=== PATIENT | female | born 1960 | race Caucasian/White ===

== ENCOUNTER 2021-11-17 18:12 | Emergency (ER) | payer OTHER, BC ==
[2021-11-17] MEDS ORDERED: HYDROmorphone 1 MG/ML Syringe IVPUSH ONE ×2 (18:39→20:20)
[2021-11-17] MEDS ORDERED: Sodium Chloride 0.9% 1,000 ML IV ONE (19:27)
== END 2021-11-17 20:50 | disposition short-term general hospital (02) ==
LOC: VM.ED 18:12
DX: S72.091A Other fracture of head and neck of right femur, initial encounter for closed fracture (principal); I10 Essential (primary) hypertension; Z91.030 Bee allergy status; Z88.8 Allergy status to other drugs, medicaments and biological substances; W01.0XXA Fall on same level from slipping, tripping and stumbling without subsequent striking against object, initial encounter
CPT/HCPCS: 51702; 73552; 96374; 96376; 99284; J1170; J7030

== ENCOUNTER 2021-11-25 11:27 | Inpatient (IN) | payer OTHER, BC ==
[2021-11-25] MEDS: oxyCODONE 5 MG Tab PO PRN ×2 (16:10→20:12)
[2021-11-25] MEDS ORDERED: Zolpidem 5 MG Tab PO PRN (17:10)
[2021-11-25] MEDS ORDERED: ALPRAZolam 0.5 MG Tab PO PRN (17:10)
[2021-11-25] MEDS ORDERED: Ondansetron 4 MG Tab.DIS PO PRN (17:15)
[2021-11-25] MEDS: Calcium Citrate/Vitamin D3 315 MG-250 Unit Tab PO SCH (18:18)
[2021-11-25] MEDS: Acetaminophen 500 MG Tab PO SCH (21:54)
[2021-11-26] MEDS: oxyCODONE 5 MG Tab PO PRN ×6 (01:25→22:37)
[2021-11-26] MEDS: Levothyroxine 125 MCG Tab PO SCH (06:01)
[2021-11-26] MEDS: Pantoprazole 40 MG Tab.CR PO SCH (06:01)
[2021-11-26] MEDS: Polyethylene Glycol 3350 Powder 17 GM Packet PO SCH (08:53)
[2021-11-26] MEDS: Acetaminophen 500 MG Tab PO SCH ×3 (08:53→20:18)
[2021-11-26] MEDS: Calcium Citrate/Vitamin D3 315 MG-250 Unit Tab PO SCH ×2 (08:53→17:17)
[2021-11-26] MEDS: Cyanocobalamin (Vitamin B12) 250 MCG Tab PO SCH (08:53)
[2021-11-26] MEDS: Multivitamins with Iron/Calcium/Folic Acid/Minerals Tab PO SCH (08:53)
[2021-11-26] MEDS: Magnesium Oxide 400 MG Tab PO SCH ×2 (08:53→20:18)
[2021-11-26] MEDS: Clopidogrel 75 MG Tab PO SCH (08:54)
[2021-11-26] MEDS: atorvaSTATin 10 MG Tab PO SCH (08:54)
[2021-11-26] MEDS: Enoxaparin 40 MG/0.4 ML Syringe SUBCUT SCH (14:22)
[2021-11-27] MEDS: oxyCODONE 5 MG Tab PO PRN ×5 (02:37→20:47)
[2021-11-27] MEDS: Levothyroxine 125 MCG Tab PO SCH (06:40)
[2021-11-27] MEDS: Pantoprazole 40 MG Tab.CR PO SCH (06:40)
[2021-11-27] MEDS: Cyanocobalamin (Vitamin B12) 250 MCG Tab PO SCH (08:39)
[2021-11-27] MEDS: Magnesium Oxide 400 MG Tab PO SCH ×2 (08:39→20:47)
[2021-11-27] MEDS: Clopidogrel 75 MG Tab PO SCH (08:39)
[2021-11-27] MEDS: Calcium Citrate/Vitamin D3 315 MG-250 Unit Tab PO SCH ×3 (08:39→17:27)
[2021-11-27] MEDS: Multivitamins with Iron/Calcium/Folic Acid/Minerals Tab PO SCH (08:39)
[2021-11-27] MEDS: atorvaSTATin 10 MG Tab PO SCH (08:39)
[2021-11-27] MEDS: Acetaminophen 500 MG Tab PO SCH ×3 (08:39→20:46)
[2021-11-27] MEDS: Polyethylene Glycol 3350 Powder 17 GM Packet PO SCH (10:22)
[2021-11-27] MEDS: Enoxaparin 40 MG/0.4 ML Syringe SUBCUT SCH (15:38)
[2021-11-28] MEDS: oxyCODONE 5 MG Tab PO PRN ×5 (01:19→19:54)
[2021-11-28 06:47] LABS: ANION GAP 10.7 mmol/L (5-15)
[2021-11-28] MEDS: Levothyroxine 125 MCG Tab PO SCH (07:06)
[2021-11-28] MEDS: Pantoprazole 40 MG Tab.CR PO SCH (07:08)
[2021-11-28] MEDS: Acetaminophen 500 MG Tab PO SCH ×3 (09:14→19:59)
[2021-11-28] MEDS: Multivitamins with Iron/Calcium/Folic Acid/Minerals Tab PO SCH (09:14)
[2021-11-28] MEDS: atorvaSTATin 10 MG Tab PO SCH (09:14)
[2021-11-28] MEDS: Magnesium Oxide 400 MG Tab PO SCH ×2 (09:15→20:01)
[2021-11-28] MEDS: Cyanocobalamin (Vitamin B12) 250 MCG Tab PO SCH (09:15)
[2021-11-28] MEDS: Clopidogrel 75 MG Tab PO SCH (09:15)
[2021-11-28] MEDS: Calcium Citrate/Vitamin D3 315 MG-250 Unit Tab PO SCH ×2 (09:15→17:43)
[2021-11-28] MEDS: Polyethylene Glycol 3350 Powder 17 GM Packet PO SCH (09:16)
[2021-11-28] MEDS ORDERED: Polyethylene Glycol 3350 Powder 17 GM Packet PO PRN (13:00)
[2021-11-28] MEDS: Enoxaparin 40 MG/0.4 ML Syringe SUBCUT SCH (13:43)
[2021-11-29] MEDS: oxyCODONE 5 MG Tab PO PRN ×6 (00:34→23:13)
[2021-11-29] MEDS: Pantoprazole 40 MG Tab.CR PO SCH (06:19)
[2021-11-29] MEDS: Levothyroxine 125 MCG Tab PO SCH (06:20)
[2021-11-29] MEDS: Acetaminophen 500 MG Tab PO SCH ×3 (08:12→20:36)
[2021-11-29] MEDS: Calcium Citrate/Vitamin D3 315 MG-250 Unit Tab PO SCH ×2 (08:12→17:27)
[2021-11-29] MEDS: Multivitamins with Iron/Calcium/Folic Acid/Minerals Tab PO SCH (08:13)
[2021-11-29] MEDS: Cyanocobalamin (Vitamin B12) 250 MCG Tab PO SCH (08:13)
[2021-11-29] MEDS: Clopidogrel 75 MG Tab PO SCH (08:13)
[2021-11-29] MEDS: Magnesium Oxide 400 MG Tab PO SCH ×2 (08:13→20:36)
[2021-11-29] MEDS: atorvaSTATin 10 MG Tab PO SCH (08:13)
[2021-11-29] MEDS: Enoxaparin 40 MG/0.4 ML Syringe SUBCUT SCH (13:01)
[2021-11-30] MEDS: oxyCODONE 5 MG Tab PO PRN ×4 (06:07→19:43)
[2021-11-30] MEDS: Levothyroxine 125 MCG Tab PO SCH (06:09)
[2021-11-30] MEDS: Pantoprazole 40 MG Tab.CR PO SCH (06:09)
[2021-11-30] MEDS: Multivitamins with Iron/Calcium/Folic Acid/Minerals Tab PO SCH (08:10)
[2021-11-30] MEDS: Acetaminophen 500 MG Tab PO SCH ×3 (08:10→21:24)
[2021-11-30] MEDS: Calcium Citrate/Vitamin D3 315 MG-250 Unit Tab PO SCH ×2 (08:10→17:26)
[2021-11-30] MEDS: Cyanocobalamin (Vitamin B12) 250 MCG Tab PO SCH (08:11)
[2021-11-30] MEDS: atorvaSTATin 10 MG Tab PO SCH (08:11)
[2021-11-30] MEDS: Clopidogrel 75 MG Tab PO SCH (08:11)
[2021-11-30] MEDS: Magnesium Oxide 400 MG Tab PO SCH ×2 (08:11→21:24)
[2021-11-30] MEDS: Enoxaparin 40 MG/0.4 ML Syringe SUBCUT SCH (13:01)
[2021-12-01] MEDS: oxyCODONE 5 MG Tab PO PRN ×5 (02:25→20:17)
[2021-12-01] MEDS: Levothyroxine 125 MCG Tab PO SCH (06:23)
[2021-12-01] MEDS: Pantoprazole 40 MG Tab.CR PO SCH (06:23)
[2021-12-01] MEDS: Acetaminophen 500 MG Tab PO SCH ×2 (08:00→12:07)
[2021-12-01] MEDS: Magnesium Oxide 400 MG Tab PO SCH ×2 (08:01→20:15)
[2021-12-01] MEDS: atorvaSTATin 10 MG Tab PO SCH (08:01)
[2021-12-01] MEDS: Cyanocobalamin (Vitamin B12) 250 MCG Tab PO SCH (08:01)
[2021-12-01] MEDS: Clopidogrel 75 MG Tab PO SCH (08:01)
[2021-12-01] MEDS: Calcium Citrate/Vitamin D3 315 MG-250 Unit Tab PO SCH ×2 (08:01→18:04)
[2021-12-01] MEDS: Multivitamins with Iron/Calcium/Folic Acid/Minerals Tab PO SCH (08:01)
[2021-12-01] MEDS: Enoxaparin 40 MG/0.4 ML Syringe SUBCUT SCH (14:57)
[2021-12-02] MEDS: oxyCODONE 5 MG Tab PO PRN ×6 (00:48→23:58)
[2021-12-02] MEDS: Acetaminophen 500 MG Tab PO SCH ×4 (00:50→13:59)
[2021-12-02] MEDS: Pantoprazole 40 MG Tab.CR PO SCH (06:00)
[2021-12-02] MEDS: Levothyroxine 125 MCG Tab PO SCH (06:00)
[2021-12-02] MEDS: Magnesium Oxide 400 MG Tab PO SCH ×2 (08:58→21:32)
[2021-12-02] MEDS: Calcium Citrate/Vitamin D3 315 MG-250 Unit Tab PO SCH ×2 (08:58→17:52)
[2021-12-02] MEDS: atorvaSTATin 10 MG Tab PO SCH (08:59)
[2021-12-02] MEDS: Clopidogrel 75 MG Tab PO SCH (08:59)
[2021-12-02] MEDS: Multivitamins with Iron/Calcium/Folic Acid/Minerals Tab PO SCH (08:59)
[2021-12-02] MEDS: Cyanocobalamin (Vitamin B12) 250 MCG Tab PO SCH (08:59)
[2021-12-02] MEDS: Enoxaparin 40 MG/0.4 ML Syringe SUBCUT SCH (13:58)
[2021-12-03] MEDS: Pantoprazole 40 MG Tab.CR PO SCH (07:27)
[2021-12-03] MEDS: Levothyroxine 125 MCG Tab PO SCH (07:27)
[2021-12-03] MEDS: oxyCODONE 5 MG Tab PO PRN ×4 (08:33→22:40)
[2021-12-03] MEDS: Multivitamins with Iron/Calcium/Folic Acid/Minerals Tab PO SCH (08:33)
[2021-12-03] MEDS: Cyanocobalamin (Vitamin B12) 250 MCG Tab PO SCH (08:33)
[2021-12-03] MEDS: Magnesium Oxide 400 MG Tab PO SCH ×2 (08:33→20:43)
[2021-12-03] MEDS: atorvaSTATin 10 MG Tab PO SCH (08:33)
[2021-12-03] MEDS: Clopidogrel 75 MG Tab PO SCH (08:33)
[2021-12-03] MEDS: Calcium Citrate/Vitamin D3 315 MG-250 Unit Tab PO SCH ×2 (08:33→17:43)
[2021-12-03] MEDS: Acetaminophen 325 MG Tab PO PRN ×3 (11:27→20:43)
[2021-12-03] MEDS: Enoxaparin 40 MG/0.4 ML Syringe SUBCUT SCH (13:00)
[2021-12-04] MEDS: Acetaminophen 325 MG Tab PO PRN ×4 (01:05→22:47)
[2021-12-04] MEDS: oxyCODONE 5 MG Tab PO PRN ×5 (04:57→22:48)
[2021-12-04] MEDS: Levothyroxine 125 MCG Tab PO SCH (06:27)
[2021-12-04] MEDS: Pantoprazole 40 MG Tab.CR PO SCH (06:27)
[2021-12-04] MEDS: Calcium Citrate/Vitamin D3 315 MG-250 Unit Tab PO SCH ×2 (08:35→17:00)
[2021-12-04] MEDS: Cyanocobalamin (Vitamin B12) 250 MCG Tab PO SCH (08:35)
[2021-12-04] MEDS: Multivitamins with Iron/Calcium/Folic Acid/Minerals Tab PO SCH (08:35)
[2021-12-04] MEDS: atorvaSTATin 10 MG Tab PO SCH (08:35)
[2021-12-04] MEDS: Magnesium Oxide 400 MG Tab PO SCH ×2 (08:35→20:49)
[2021-12-04] MEDS: Clopidogrel 75 MG Tab PO SCH (08:35)
[2021-12-04] MEDS: Enoxaparin 40 MG/0.4 ML Syringe SUBCUT SCH (14:26)
[2021-12-05] MEDS: Acetaminophen 325 MG Tab PO PRN ×5 (03:07→21:25)
[2021-12-05] MEDS: oxyCODONE 5 MG Tab PO PRN ×5 (03:08→19:47)
[2021-12-05 07:05] LABS: ANION GAP 8.6 mmol/L (5-15)
[2021-12-05] MEDS: Levothyroxine 125 MCG Tab PO SCH (07:05)
[2021-12-05] MEDS: Pantoprazole 40 MG Tab.CR PO SCH (07:05)
[2021-12-05] MEDS: Magnesium Oxide 400 MG Tab PO SCH ×3 (08:36→20:11)
[2021-12-05] MEDS: Cyanocobalamin (Vitamin B12) 250 MCG Tab PO SCH (08:36)
[2021-12-05] MEDS: Multivitamins with Iron/Calcium/Folic Acid/Minerals Tab PO SCH (08:36)
[2021-12-05] MEDS: Clopidogrel 75 MG Tab PO SCH (08:36)
[2021-12-05] MEDS: atorvaSTATin 10 MG Tab PO SCH (08:36)
[2021-12-05] MEDS: Calcium Citrate/Vitamin D3 315 MG-250 Unit Tab PO SCH ×3 (08:37→18:18)
[2021-12-05] MEDS: Enoxaparin 40 MG/0.4 ML Syringe SUBCUT SCH (15:22)
[2021-12-06] MEDS: oxyCODONE 5 MG Tab PO PRN ×3 (00:16→10:35)
[2021-12-06] MEDS: Acetaminophen 325 MG Tab PO PRN ×2 (03:04→08:08)
[2021-12-06] MEDS: Levothyroxine 125 MCG Tab PO SCH (06:24)
[2021-12-06] MEDS: Pantoprazole 40 MG Tab.CR PO SCH (06:24)
[2021-12-06] MEDS: Magnesium Oxide 400 MG Tab PO SCH (08:09)
[2021-12-06] MEDS: atorvaSTATin 10 MG Tab PO SCH (08:10)
[2021-12-06] MEDS: Multivitamins with Iron/Calcium/Folic Acid/Minerals Tab PO SCH (08:10)
[2021-12-06] MEDS: Clopidogrel 75 MG Tab PO SCH (08:10)
[2021-12-06] MEDS: Calcium Citrate/Vitamin D3 315 MG-250 Unit Tab PO SCH (08:10)
[2021-12-06] MEDS: Cyanocobalamin (Vitamin B12) 250 MCG Tab PO SCH (08:14)
== END 2021-12-06 10:50 | disposition home or self-care (01) | DRG 560 ==
LOC: VM.MS 14:38
PROVIDERS: ADMIT Internal Medicine; ATTEND Family Medicine
DX: S72.141D Displaced intertrochanteric fracture of right femur, subsequent encounter for closed fracture with routine healing (principal); E87.1 Hypo-osmolality and hyponatremia; D62 Acute posthemorrhagic anemia; C34.91 Malignant neoplasm of unspecified part of right bronchus or lung; C34.92 Malignant neoplasm of unspecified part of left bronchus or lung; E03.9 Hypothyroidism, unspecified; R10.13 Epigastric pain; E78.5 Hyperlipidemia, unspecified; E53.8 Deficiency of other specified B group vitamins; Z88.8 Allergy status to other drugs, medicaments and biological substances; Z79.01 Long term (current) use of anticoagulants; Z79.899 Other long term (current) drug therapy; Z79.890 Hormone replacement therapy; Z86.16 Personal history of COVID-19; Z86.73 Personal history of transient ischemic attack (TIA), and cerebral infarction without residual deficits
CPT/HCPCS: 36415; 80048; 85025; 97110-GP; 97116-GP; 97161-GP; 97165-GO; 97535-GO; 97755-GO; A9270-GY; J1650

== ENCOUNTER 2023-01-17 16:41 | Emergency (ER) | payer BC, OTHER ==
[2023-01-17] MEDS ORDERED: Sodium Chloride 0.9% 10 ML Syringe FLUSH PRN (16:49)
[2023-01-17] MEDS ORDERED: Ondansetron 4 MG/2 ML SDV IVPUSH ONE (16:51)
[2023-01-17] MEDS ORDERED: Sodium Chloride 0.9% 1,000 ML IV SCH (17:00)
[2023-01-17 17:16] LABS: HEMATOCRIT 30.3 % (33.0-47.0); HEMOGLOBIN 10.5 g/dL (12.0-16.0); MEAN CORPUSCULAR HEMOGLOBIN 30.5 pg (26.0-32.0); MEAN CORPUSCULAR HGB CONC 34.7 g/dL (32.0-36.0); MEAN CORPUSCULAR VOLUME 88.1 fL (78.0-93.0); PLATELET COUNT,PLT 170 x10^3/uL (130-400); RED BLOOD CELL COUNT 3.44 x10^6/uL (4.00-5.50)
[2023-01-17] MEDS ORDERED: Piperacillin/Tazobactam 4.5 GM in Sodium Chloride 0.9% 100 ML IV ONE (17:19)
[2023-01-17] MEDS ORDERED: Azithromycin 500 MG in Sodium Chloride 0.9% 250 ML IV ONE (17:20)
[2023-01-17 17:25] LABS: WHITE BLOOD CELL COUNT,WBC 1.6 x10^3/uL (4.0-10.0)
[2023-01-17 17:32] LABS: PTT,PARTIAL THROMBOPLSTIN TIME 38.3 SEC (23.6-33.6)
[2023-01-17 17:37] LABS: EOSINOPHILS ABSOLUTE MAN 0.1 x10^3/uL (0.0-0.5); EOSINOPHILS PERCENT MAN 4 % (0-4); LYMPHOCYTES ABSOLUTE MAN 1.2 x10^3/uL (1.0-4.8); LYMPHOCYTES PERCENT MAN 78 % (25-50); MONOCYTES ABSOLUTE MAN 0.1 x10^3/uL (0.0-0.8); MONOCYTES PERCENT MAN 7 % (2-11); NEUTROPHILS ABSOLUTE MAN 0.2 x10^3/uL (1.8-7.7); PLATELET COUNT ESTIMATE ADEQUATE; SEG NEUTROPHILS PERCENT MAN 11 % (50-80)
[2023-01-17 17:46] LABS: INR 1.1 (2.0-3.5); PROTHROMBIN TIME 11.4 SEC (9.5-12.2)
[2023-01-17 18:03] LABS: A/G RATIO 0.68; ALANINE AMINOTRANSFERASE,ALT 10 U/L (14-59); ALBUMIN 2.7 g/dL (3.4-5.0); ALKALINE PHOSPHATASE 55 U/L (46-116); ANION GAP 11.9 mmol/L (5-15); ASPARTATE AMNIOTRANSFERASE,AST 21 U/L (15-37); BILIRUBIN TOTAL 0.7 mg/dL (0.2-1.0); BLOOD UREA NITROGEN,BUN 15 mg/dL (7-18); C-REACTIVE PROTEIN 14.63 mg/dL (<=0.30); CALCIUM 8.4 mg/dL (8.5-10.1); CARBON DIOXIDE,CO2 27 mmol/L (21-32); CHLORIDE,CL 96 mmol/L (98-107); CREATININE 0.9 mg/dL (0.55-1.02); GLUCOSE RANDOM 104 mg/dL (70-99); MAGNESIUM 1.6 mg/dL (1.8-2.4); PHOSPHORUS 3.6 mg/dL (2.6-4.7); POTASSIUM,K 3.9 mmol/L (3.5-5.1); PROTEIN TOTAL,TP 6.7 g/dL (6.4-8.2); SODIUM,NA 131 mmol/L (136-145)
[2023-01-17 18:04] LABS: ESTIMATED GFR 73 mL/min (>=60)
[2023-01-17 18:10] LABS: CORONAVIRUS COVID-19 NAA NEGATIVE (NEGATIVE); INFLUENZA A NAA NEGATIVE (NEGATIVE); INFLUENZA B NAA NEGATIVE (NEGATIVE)
[2023-01-17 18:11] LABS: RESPIRATORY SYNCYTIAL VIR NAA NEGATIVE (NEGATIVE)
[2023-01-17] MEDS ORDERED: Metoclopramide 10 MG/2 ML SDV IVPUSH ONE (19:01)
[2023-01-17 20:00] LABS: BILIRUBIN,URINE NEGATIVE (NEGATIVE); COLOR,URINE AMBER (YELLOW); GLUCOSE,URINE NEGATIVE (NEGATIVE); KETONES,URINE NEGATIVE (NEGATIVE); LEUKOCYTE ESTERASE,URINE SMALL (NEGATIVE); NITRITE,URINE NEGATIVE (NEGATIVE); OCCULT BLOOD,URINE TRACE-INTACT (NEGATIVE); PROTEIN,URINE 30 mg/dL (NEGATIVE); UROBILINOGEN,URINE 0.2 EU/dL (0.2)
[2023-01-17 20:01] LABS: APPEARANCE,URINE CLOUDY (CLEAR)
[2023-01-17 20:08] LABS: BACTERIA,URINE OCCASIONAL /HPF (NOT SEEN); MUCUS,URINE OCCASIONAL /LPF (NOT SEEN); RBC,URINE 0-5 /HPF (NOT SEEN); SQUAMOUS EPITHELIAL CELLS,UR FEW /HPF (NOT SEEN); WBC,URINE 30-40 /HPF (NOT SEEN)
== END 2023-01-17 20:05 | disposition short-term general hospital (02) ==
LOC: VM.ED 16:41
DX: A41.9 Sepsis, unspecified organism (principal); J18.9 Pneumonia, unspecified organism; D70.9 Neutropenia, unspecified; E03.9 Hypothyroidism, unspecified; J44.9 Chronic obstructive pulmonary disease, unspecified; I10 Essential (primary) hypertension; Z20.822 Contact with and (suspected) exposure to COVID-19; Z86.73 Personal history of transient ischemic attack (TIA), and cerebral infarction without residual deficits; Z79.899 Other long term (current) drug therapy; Z91.030 Bee allergy status; Z88.8 Allergy status to other drugs, medicaments and biological substances
CPT/HCPCS: 0241U; 36415; 70450; 71045; 80053; 81001; 83605; 83735; 84100; 84145; 84443; 84484; 85025; 85610; 85730; 86140; 87040; 87086; 93005; 96365; 96367; 96375; 99285; J0456; J2405; J2543; J2765; J3370; J3490; J7030; J7050; 93010; 99284

== ENCOUNTER 2023-08-18 10:55 | Inpatient (IN) | payer BC ==
[2023-08-18] MEDS ORDERED: Sodium Chloride 0.9% 10 ML Syringe FLUSH PRN (11:16)
[2023-08-18] MEDS: Lactated Ringers 1,000 ML IV ONE (11:40)
[2023-08-18] MEDS: Ondansetron 4 MG/2 ML SDV IVPUSH ONE (11:43)
[2023-08-18 11:50] LABS: BASOPHILS PERCENT AUTO 0.1 % (0.2-1.2); EOSINOPHILS PERCENT AUTO 0.1 % (0.0-4.0); HEMATOCRIT 39.1 % (33.0-47.0); HEMOGLOBIN 13.2 g/dL (12.0-16.0); IMMATURE GRAN ABSOLUTE AUTO 0.07 x10^3/uL (0.00-0.07); LYMPHOCYTES ABSOLUTE AUTO 2.5 x10^3/uL (1.0-4.8); LYMPHOCYTES PERCENT AUTO 16.4 % (25.0-50.0); MEAN CORPUSCULAR HEMOGLOBIN 30.6 pg (26.0-32.0); MEAN CORPUSCULAR HGB CONC 33.8 g/dL (32.0-36.0); MEAN CORPUSCULAR VOLUME 90.7 fL (78.0-93.0); MONOCYTES ABSOLUTE AUTO 0.8 x10^3/uL (0.0-0.8); MONOCYTES PERCENT AUTO 4.9 % (2.0-11.0); NEUTROPHILS ABSOLUTE AUTO 12.1 x10^3/uL (1.8-7.7); PLATELET COUNT,PLT 248 x10^3/uL (130-400); RED BLOOD CELL COUNT 4.31 x10^6/uL (4.00-5.50); WHITE BLOOD CELL COUNT,WBC 15.5 x10^3/uL (4.0-10.0)
[2023-08-18 12:09] LABS: INR 1.2 (0.9-1.1); PROTHROMBIN TIME 11.8 SEC (8.9-11.5)
[2023-08-18 12:12] LABS: A/G RATIO 0.54; ALBUMIN 2.5 g/dL (3.4-5.0); BILIRUBIN TOTAL 0.5 mg/dL (0.2-1.0); C-REACTIVE PROTEIN 18.73 mg/dL (<=0.50); CALCIUM 8.7 mg/dL (8.5-10.1); CREATININE 1.3 mg/dL (0.55-1.02); EST CRCL DRUG DOSING (CG) 40.89 mL/min; MAGNESIUM 1.6 mg/dL (1.8-2.4); POTASSIUM,K 3.5 mmol/L (3.5-5.1); PROTEIN TOTAL,TP 7.1 g/dL (6.4-8.2)
[2023-08-18 12:13] LABS: ANION GAP 18.5 mmol/L (5-15)
[2023-08-18 12:15] LABS: LACTIC ACID 2.7 mmol/L (0.4-2.0)
[2023-08-18] MEDS: Piperacillin/Tazobactam 4.5 GM in Sodium Chloride 0.9% 100 ML IV ONE (12:30)
[2023-08-18] MEDS: Lactated Ringers 1,000 ML IV SCH (12:58)
[2023-08-18] MEDS ORDERED: Acetaminophen 325 MG Tab PO PRN (13:37)
[2023-08-18] MEDS ORDERED: Polyethylene Glycol 3350 Powder 17 GM Packet PO PRN (13:44)
[2023-08-18] MEDS ORDERED: Albuterol HFA 18 Gm Inhaler INH PRN (13:44)
[2023-08-18 14:53] LABS: LACTIC ACID 1.8 mmol/L (0.4-2.0)
[2023-08-18] MEDS: Heparin Sodium 5,000 Units/ML Vial SUBCUT SCH (14:56)
[2023-08-18 15:25] LABS: CORONAVIRUS COVID-19 NAA NEGATIVE (NEGATIVE); INFLUENZA A NAA NEGATIVE (NEGATIVE); INFLUENZA B NAA NEGATIVE (NEGATIVE); RESPIRATORY SYNCYTIAL VIR NAA NEGATIVE (NEGATIVE)
[2023-08-18] MEDS: Loperamide 2 MG Cap PO PRN (16:24)
[2023-08-18] MEDS: Calcium Citrate/Vitamin D3 315 MG-250 Unit Tab PO SCH (18:10)
[2023-08-18] MEDS: Sennosides/Docusate Sodium 50-8.6 MG Tab PO SCH (20:51)
[2023-08-18] MEDS: atorvaSTATin 10 MG Tab PO SCH (20:56)
[2023-08-18] MEDS: Zolpidem 5 MG Tab PO PRN (22:13)
[2023-08-19 08:17] LABS: EOSINOPHILS PERCENT AUTO 0.1 % (0.0-4.0); HEMATOCRIT 36.8 % (33.0-47.0); HEMOGLOBIN 12.2 g/dL (12.0-16.0); IMMATURE GRAN ABSOLUTE AUTO 0.05 x10^3/uL (0.00-0.07); LYMPHOCYTES ABSOLUTE AUTO 2.5 x10^3/uL (1.0-4.8); LYMPHOCYTES PERCENT AUTO 17.9 % (25.0-50.0); MEAN CORPUSCULAR HEMOGLOBIN 30.3 pg (26.0-32.0); MEAN CORPUSCULAR HGB CONC 33.2 g/dL (32.0-36.0); MEAN CORPUSCULAR VOLUME 91.5 fL (78.0-93.0); MONOCYTES ABSOLUTE AUTO 0.8 x10^3/uL (0.0-0.8); MONOCYTES PERCENT AUTO 5.9 % (2.0-11.0); NEUTROPHILS ABSOLUTE AUTO 10.7 x10^3/uL (1.8-7.7); NEUTROPHILS PERCENT AUTO 75.7 % (50.0-80.0); PLATELET COUNT,PLT 224 x10^3/uL (130-400); RED BLOOD CELL COUNT 4.02 x10^6/uL (4.00-5.50); WHITE BLOOD CELL COUNT,WBC 14.1 x10^3/uL (4.0-10.0)
[2023-08-19 08:34] LABS: CALCIUM 8.4 mg/dL (8.5-10.1); CREATININE 1.3 mg/dL (0.55-1.02); EST CRCL DRUG DOSING (CG) 37.59 mL/min; POTASSIUM,K 3.2 mmol/L (3.5-5.1)
[2023-08-19 08:36] LABS: ANION GAP 19.2 mmol/L (5-15)
[2023-08-19] MEDS: Sodium Chloride 0.9% 1,000 ML IV SCH (08:56)
[2023-08-19] MEDS: Magnesium Oxide 400 MG Tab PO SCH (09:29)
[2023-08-19] MEDS: Clopidogrel 75 MG Tab PO SCH (09:29)
[2023-08-19] MEDS: OLANZapine 2.5 MG Tab PO SCH (09:29)
[2023-08-19] MEDS: Cholecalciferol (Vitamin D3) 25 MCG Tab PO SCH (09:30)
[2023-08-19] MEDS: Pantoprazole 40 MG Tab.CR PO SCH (09:30)
[2023-08-19] MEDS: Potassium Chloride Riders 20 MEQ in Premix Bag 1 BAG IV SCH (10:13)
[2023-08-19] MEDS: Dexamethasone 4 MG/ML SDV IM PRN (10:51)
[2023-08-19] MEDS: Ondansetron 4 MG Tab.DIS PO PRN (10:51)
[2023-08-19] MEDS: Magnesium Chloride 64 MG Tab.ER PO SCH (11:25)
[2023-08-19] MEDS: traMADol 50 MG Tab PO PRN (12:48)
[2023-08-19] MEDS: Dexamethasone/Tobramycin 0.1-0.3% Ophth Susp 2.5 ML Bottle EYEBOTH SCH (13:12)
[2023-08-19] MEDS: Piperacillin/Tazobactam 4.5 GM in Sodium Chloride 0.9% 100 ML IV SCH (19:50)
[2023-08-20 07:14] LABS: BASOPHILS PERCENT AUTO 0.1 % (0.2-1.2); HEMATOCRIT 32.1 % (33.0-47.0); HEMOGLOBIN 10.7 g/dL (12.0-16.0); IMMATURE GRAN ABSOLUTE AUTO 0.07 x10^3/uL (0.00-0.07); LYMPHOCYTES PERCENT AUTO 7.9 % (25.0-50.0); MEAN CORPUSCULAR HEMOGLOBIN 30.4 pg (26.0-32.0); MEAN CORPUSCULAR HGB CONC 33.3 g/dL (32.0-36.0); MEAN CORPUSCULAR VOLUME 91.2 fL (78.0-93.0); MONOCYTES ABSOLUTE AUTO 0.4 x10^3/uL (0.0-0.8); MONOCYTES PERCENT AUTO 2.9 % (2.0-11.0); NEUTROPHILS ABSOLUTE AUTO 10.8 x10^3/uL (1.8-7.7); NEUTROPHILS PERCENT AUTO 88.5 % (50.0-80.0); PLATELET COUNT,PLT 258 x10^3/uL (130-400); RED BLOOD CELL COUNT 3.52 x10^6/uL (4.00-5.50); WHITE BLOOD CELL COUNT,WBC 12.2 x10^3/uL (4.0-10.0)
[2023-08-20 07:30] LABS: ANION GAP 18.4 mmol/L (5-15); CALCIUM 7.8 mg/dL (8.5-10.1); CREATININE 1.2 mg/dL (0.55-1.02); EST CRCL DRUG DOSING (CG) 40.73 mL/min; MAGNESIUM 1.5 mg/dL (1.8-2.4); POTASSIUM,K 3.4 mmol/L (3.5-5.1)
[2023-08-20] MEDS: Magnesium Oxide 400 MG Tab PO SCH (09:55)
[2023-08-20] MEDS: NS with KCl 40mEq 1,000 ML IV SCH (10:02)
[2023-08-20 15:13] LABS: APPEARANCE,URINE SLIGHTLY CLOUDY (CLEAR); BILIRUBIN,URINE SMALL (NEGATIVE); COLOR,URINE DARK YELLOW (YELLOW); GLUCOSE,URINE NEGATIVE (NEGATIVE); KETONES,URINE NEGATIVE (NEGATIVE); LEUKOCYTE ESTERASE,URINE NEGATIVE (NEGATIVE); NITRITE,URINE NEGATIVE (NEGATIVE); OCCULT BLOOD,URINE NEGATIVE (NEGATIVE); PH,URINE 5.5 (5.0-8.0); PROTEIN,URINE 30 mg/dL (NEGATIVE); UROBILINOGEN,URINE 0.2 EU/dL (0.2)
[2023-08-20 15:26] LABS: AMORPHOUS SEDIMENT,URINE FEW; BACTERIA,URINE RARE /HPF (NOT SEEN); GRANULAR CASTS,URINE FEW; HYALINE CASTS,URINE FEW; MUCUS,URINE FEW /LPF (NOT SEEN); RBC,URINE 0-5 /HPF (NOT SEEN); SQUAMOUS EPITHELIAL CELLS,UR FEW /HPF (NOT SEEN); WBC,URINE 0-5 /HPF (NOT SEEN)
[2023-08-20] MEDS: Heparin Sodium 5,000 Units/ML Vial SUBCUT SCH (18:06)
[2023-08-21] MEDS ORDERED: Pantoprazole 40 MG Tab.CR PO SCH (07:00)
[2023-08-21] MEDS ORDERED: Hydrocortisone 20 MG Tab PO SCH (09:00)
== END 2023-08-20 21:15 | disposition short-term general hospital (02) | DRG 720 ==
LOC: VM.ED 10:55 → VM.MS 12:51 → OBSVTOIN 12:51
PROVIDERS: ADMIT Family Medicine; ATTEND Family Medicine
DX: A41.9 Sepsis, unspecified organism (principal); N17.9 Acute kidney failure, unspecified; E87.20 Acidosis, unspecified; E27.40 Unspecified adrenocortical insufficiency; K52.1 Toxic gastroenteritis and colitis; R65.20 Severe sepsis without septic shock; C34.91 Malignant neoplasm of unspecified part of right bronchus or lung; E86.0 Dehydration; E78.00 Pure hypercholesterolemia, unspecified; I10 Essential (primary) hypertension; J44.9 Chronic obstructive pulmonary disease, unspecified; M19.90 Unspecified osteoarthritis, unspecified site; E03.9 Hypothyroidism, unspecified; E78.5 Hyperlipidemia, unspecified; G47.00 Insomnia, unspecified; E87.6 Hypokalemia; E83.42 Hypomagnesemia; T45.1X5A Adverse effect of antineoplastic and immunosuppressive drugs, initial encounter; Z88.8 Allergy status to other drugs, medicaments and biological substances; Z79.51 Long term (current) use of inhaled steroids; Z79.02 Long term (current) use of antithrombotics/antiplatelets; Z79.899 Other long term (current) drug therapy; Z86.73 Personal history of transient ischemic attack (TIA), and cerebral infarction without residual deficits; Z86.16 Personal history of COVID-19; Z98.49 Cataract extraction status, unspecified eye; Z87.11 Personal history of peptic ulcer disease; Z87.891 Personal history of nicotine dependence; Z87.81 Personal history of (healed) traumatic fracture
CPT/HCPCS: 0241U; 36415; 70450; 71045; 80048; 80053; 81001; 83605; 83735; 84145; 85025; 85610; 85730; 86140; 87040; 87045; 87046; 87070; 87324; 87493; 99284; A9270-GY; J1100; J1644; J2405; J2543; J3480; J3490; J7030; J7120

== ENCOUNTER 2024-07-10 20:57 | Emergency (ER) | payer BC ==
[2024-07-10] MEDS: Acetaminophen/HYDROcodone 325-10 MG Tab PO ONE ×2 (21:23→22:40)
[2024-07-10 22:13] LABS: BASOPHILS PERCENT AUTO 0.2 % (0.2-1.2); HEMATOCRIT 28.8 % (33.0-47.0); HEMOGLOBIN 9.8 g/dL (12.0-16.0); IMMATURE GRAN ABSOLUTE AUTO 0.01 x10^3/uL (0.00-0.07); LYMPHOCYTES ABSOLUTE AUTO 0.8 x10^3/uL (1.0-4.8); LYMPHOCYTES PERCENT AUTO 14.2 % (25.0-50.0); MEAN CORPUSCULAR VOLUME 91.1 fL (78.0-93.0); MONOCYTES ABSOLUTE AUTO 0.6 x10^3/uL (0.0-0.8); MONOCYTES PERCENT AUTO 9.3 % (2.0-11.0); NEUTROPHILS ABSOLUTE AUTO 4.5 x10^3/uL (1.8-7.7); NEUTROPHILS PERCENT AUTO 76.1 % (50.0-80.0); PLATELET COUNT,PLT 117 x10^3/uL (130-400); RED BLOOD CELL COUNT 3.16 x10^6/uL (4.00-5.50); WHITE BLOOD CELL COUNT,WBC 5.9 x10^3/uL (4.0-10.0)
[2024-07-10 22:25] LABS: PROTHROMBIN TIME 10.7 SEC (9.6-12.0); PTT,PARTIAL THROMBOPLSTIN TIME 35.9 SEC (23.5-33.2)
[2024-07-10 22:28] LABS: A/G RATIO 0.75; ALBUMIN 2.7 g/dL (3.4-5.0); ANION GAP 8.3 mmol/L (5-15); BILIRUBIN TOTAL 0.4 mg/dL (0.2-1.0); CALCIUM 8.6 mg/dL (8.5-10.1); CREATININE 0.7 mg/dL (0.55-1.02); EST CRCL DRUG DOSING (CG) 74.98 mL/min; POTASSIUM,K 4.3 mmol/L (3.5-5.1); PROTEIN TOTAL,TP 6.3 g/dL (6.4-8.2)
[2024-07-10] MEDS: Take Home: Acetaminophen/HYDROcodone 325-10 MG, 5 Tab Pack PO ONE (23:30)
== END 2024-07-10 23:35 | disposition home or self-care (01) ==
LOC: VM.ED 20:57
DX: S82.001A Unspecified fracture of right patella, initial encounter for closed fracture (principal); I10 Essential (primary) hypertension; E78.00 Pure hypercholesterolemia, unspecified; J44.9 Chronic obstructive pulmonary disease, unspecified; E03.9 Hypothyroidism, unspecified; Z86.73 Personal history of transient ischemic attack (TIA), and cerebral infarction without residual deficits; Z86.16 Personal history of COVID-19; Z88.8 Allergy status to other drugs, medicaments and biological substances; Z91.038 Other insect allergy status; Z79.51 Long term (current) use of inhaled steroids; Z79.890 Hormone replacement therapy; Z79.899 Other long term (current) drug therapy; W19.XXXA Unspecified fall, initial encounter
CPT/HCPCS: 36415; 73562-RT; 80053; 85025; 85610; 85730; 99284; A9270-GY

== ENCOUNTER 2024-08-30 13:13 | Emergency (ER) | payer BC ==
[2024-08-30] MEDS: Sodium Chloride 0.9% 1,000 ML IV ONE (14:13)
[2024-08-30] MEDS: Ondansetron 4 MG/2 ML SDV IVPUSH ONE ×2 (14:13→14:21)
[2024-08-30 14:15] LABS: BASOPHILS PERCENT AUTO 0.2 % (0.2-1.2); EOSINOPHILS ABSOLUTE AUTO 0.1 x10^3/uL (0.0-0.5); EOSINOPHILS PERCENT AUTO 1.3 % (0.0-4.0); HEMATOCRIT 35.7 % (33.0-47.0); HEMOGLOBIN 11.8 g/dL (12.0-16.0); IMMATURE GRAN ABSOLUTE AUTO 0.01 x10^3/uL (0.00-0.07); LYMPHOCYTES PERCENT AUTO 19.5 % (25.0-50.0); MEAN CORPUSCULAR HEMOGLOBIN 29.4 pg (26.0-32.0); MEAN CORPUSCULAR HGB CONC 33.1 g/dL (32.0-36.0); MONOCYTES ABSOLUTE AUTO 0.5 x10^3/uL (0.0-0.8); MONOCYTES PERCENT AUTO 10.1 % (2.0-11.0); NEUTROPHILS ABSOLUTE AUTO 3.6 x10^3/uL (1.8-7.7); NEUTROPHILS PERCENT AUTO 68.7 % (50.0-80.0); PLATELET COUNT,PLT 253 x10^3/uL (130-400); RED BLOOD CELL COUNT 4.01 x10^6/uL (4.00-5.50); WHITE BLOOD CELL COUNT,WBC 5.2 x10^3/uL (4.0-10.0)
[2024-08-30 14:30] LABS: A/G RATIO 0.69; ALANINE AMINOTRANSFERASE,ALT 20 U/L (14-59); ALBUMIN 3.1 g/dL (3.4-5.0); ALKALINE PHOSPHATASE 93 U/L (46-116); ASPARTATE AMNIOTRANSFERASE,AST 24 U/L (15-37); BILIRUBIN TOTAL 0.5 mg/dL (0.2-1.0); BLOOD UREA NITROGEN,BUN 11 mg/dL (7-18); CALCIUM 9.4 mg/dL (8.5-10.1); CARBON DIOXIDE,CO2 31 mmol/L (21-32); CHLORIDE,CL 97 mmol/L (98-107); CREATININE 0.7 mg/dL (0.55-1.02); GLUCOSE RANDOM 98 mg/dL (70-99); LIPASE 48 U/L (19-71); POTASSIUM,K 4.2 mmol/L (3.5-5.1); PROTEIN TOTAL,TP 7.6 g/dL (6.4-8.2); SODIUM,NA 136 mmol/L (136-145)
[2024-08-30 14:31] LABS: ANION GAP 12.2 mmol/L (5-15); ESTIMATED GFR 98 mL/min (>=60)
[2024-08-30] MEDS: Sodium Chloride 0.9% 1,000 ML IV SCH (15:17)
[2024-08-30] MEDS: Take Home: Ondansetron 4 MG Tab.DIS, 5 Tab Pack PO ONE (16:31)
== END 2024-08-30 16:42 | disposition home or self-care (01) ==
LOC: VM.ED 13:13
DX: R11.2 Nausea with vomiting, unspecified (principal); I10 Essential (primary) hypertension; J44.9 Chronic obstructive pulmonary disease, unspecified; E78.00 Pure hypercholesterolemia, unspecified; Z88.8 Allergy status to other drugs, medicaments and biological substances; Z91.048 Other nonmedicinal substance allergy status; Z79.890 Hormone replacement therapy; Z79.899 Other long term (current) drug therapy; Z86.16 Personal history of COVID-19
CPT/HCPCS: 36415; 80053; 83690; 85025; 96361; 96374; 96375; 99284; 99284-25; J1642; J2405; J7030; Q0162

== ENCOUNTER 2024-10-20 17:49 | Emergency (ER) | payer BC ==
[2024-10-20] MEDS ORDERED: Ondansetron 4 MG/2 ML SDV IVPUSH ONE (17:54)
[2024-10-20 18:13] LABS: BASOPHILS PERCENT AUTO 0.4 % (0.2-1.2); EOSINOPHILS ABSOLUTE AUTO 0.1 x10^3/uL (0.0-0.5); EOSINOPHILS PERCENT AUTO 0.6 % (0.0-4.0); HEMATOCRIT 39.3 % (33.0-47.0); HEMOGLOBIN 13.3 g/dL (12.0-16.0); IMMATURE GRAN ABSOLUTE AUTO 0.03 x10^3/uL (0.00-0.07); LYMPHOCYTES ABSOLUTE AUTO 1.4 x10^3/uL (1.0-4.8); LYMPHOCYTES PERCENT AUTO 16.6 % (25.0-50.0); MEAN CORPUSCULAR HEMOGLOBIN 29.8 pg (26.0-32.0); MEAN CORPUSCULAR HGB CONC 33.8 g/dL (32.0-36.0); MEAN CORPUSCULAR VOLUME 87.9 fL (78.0-93.0); MONOCYTES ABSOLUTE AUTO 0.6 x10^3/uL (0.0-0.8); MONOCYTES PERCENT AUTO 7.4 % (2.0-11.0); NEUTROPHILS ABSOLUTE AUTO 6.2 x10^3/uL (1.8-7.7); NEUTROPHILS PERCENT AUTO 74.6 % (50.0-80.0); PLATELET COUNT,PLT 238 x10^3/uL (130-400); RED BLOOD CELL COUNT 4.47 x10^6/uL (4.00-5.50)
[2024-10-20 18:25] LABS: WHITE BLOOD CELL COUNT,WBC 8.3 x10^3/uL (4.0-10.0)
[2024-10-20 18:34] LABS: A/G RATIO 0.86; ALANINE AMINOTRANSFERASE,ALT 28 U/L (14-59); ALBUMIN 3.2 g/dL (3.4-5.0); ALKALINE PHOSPHATASE 90 U/L (46-116); ASPARTATE AMNIOTRANSFERASE,AST 16 U/L (15-37); BILIRUBIN TOTAL 0.6 mg/dL (0.2-1.0); BLOOD UREA NITROGEN,BUN 18 mg/dL (7-18); CALCIUM 8.7 mg/dL (8.5-10.1); CARBON DIOXIDE,CO2 31 mmol/L (21-32); CHLORIDE,CL 94 mmol/L (98-107); CREATININE 0.6 mg/dL (0.55-1.02); GLUCOSE RANDOM 96 mg/dL (70-99); POTASSIUM,K 3.9 mmol/L (3.5-5.1); PROTEIN TOTAL,TP 6.9 g/dL (6.4-8.2); SODIUM,NA 133 mmol/L (136-145)
[2024-10-20 18:44] LABS: ANION GAP 11.9 mmol/L (5-15); ESTIMATED GFR 101 mL/min (>=60)
[2024-10-20] MEDS: HYDROmorphone 1 MG/ML Syringe IVPUSH ONE (19:58)
== END 2024-10-20 20:05 | disposition short-term general hospital (02) ==
LOC: VM.ED 17:49
DX: G93.6 Cerebral edema (principal); I10 Essential (primary) hypertension; E78.00 Pure hypercholesterolemia, unspecified; J44.9 Chronic obstructive pulmonary disease, unspecified; E03.9 Hypothyroidism, unspecified; Z91.030 Bee allergy status; Z88.8 Allergy status to other drugs, medicaments and biological substances; Z79.899 Other long term (current) drug therapy; Z86.73 Personal history of transient ischemic attack (TIA), and cerebral infarction without residual deficits; Z79.02 Long term (current) use of antithrombotics/antiplatelets; Z79.890 Hormone replacement therapy
CPT/HCPCS: 36415; 70450; 80053; 85025; 86140; 96374; 99285; J1171; 99284

== ENCOUNTER 2024-11-10 12:51 | Emergency (ER) | payer BC ==
[2024-11-10] MEDS ORDERED: Sodium Chloride 0.9% 10 ML Syringe FLUSH PRN (13:04)
[2024-11-10] MEDS: Lactated Ringers 1,000 ML IV ONE (13:36)
[2024-11-10] MEDS: methylPREDNISolone Sodium Succinate 125 MG/2 ML SDV IV ONE (13:36)
[2024-11-10 13:51] LABS: BASOPHILS PERCENT AUTO 0.1 % (0.2-1.2); EOSINOPHILS ABSOLUTE AUTO 0.1 x10^3/uL (0.0-0.5); EOSINOPHILS PERCENT AUTO 1.5 % (0.0-4.0); HEMATOCRIT 31.9 % (33.0-47.0); HEMOGLOBIN 10.9 g/dL (12.0-16.0); IMMATURE GRAN ABSOLUTE AUTO 0.05 x10^3/uL (0.00-0.07); LYMPHOCYTES ABSOLUTE AUTO 0.6 x10^3/uL (1.0-4.8); LYMPHOCYTES PERCENT AUTO 9.3 % (25.0-50.0); MEAN CORPUSCULAR HEMOGLOBIN 30.3 pg (26.0-32.0); MEAN CORPUSCULAR HGB CONC 34.2 g/dL (32.0-36.0); MEAN CORPUSCULAR VOLUME 88.6 fL (78.0-93.0); MONOCYTES ABSOLUTE AUTO 0.6 x10^3/uL (0.0-0.8); MONOCYTES PERCENT AUTO 8.5 % (2.0-11.0); NEUTROPHILS ABSOLUTE AUTO 5.4 x10^3/uL (1.8-7.7); NEUTROPHILS PERCENT AUTO 79.9 % (50.0-80.0); PLATELET COUNT,PLT 259 x10^3/uL (130-400)
[2024-11-10 14:16] LABS: WHITE BLOOD CELL COUNT,WBC 6.7 x10^3/uL (4.0-10.0)
[2024-11-10 14:29] LABS: A/G RATIO 0.56; ALBUMIN 2.3 g/dL (3.4-5.0); ANION GAP 12.5 mmol/L (5-15); BILIRUBIN TOTAL 0.9 mg/dL (0.2-1.0); C-REACTIVE PROTEIN 20.52 mg/dL (<=0.50); CALCIUM 8.8 mg/dL (8.5-10.1); CREATININE 0.7 mg/dL (0.55-1.02); EST CRCL DRUG DOSING (CG) 71.96 mL/min; MAGNESIUM 1.8 mg/dL (1.8-2.4); POTASSIUM,K 3.5 mmol/L (3.5-5.1); PROTEIN TOTAL,TP 6.4 g/dL (6.4-8.2)
[2024-11-10] MEDS: cefTRIAXone 1 GM Vial IVPUSH ONE (14:55)
== END 2024-11-10 15:18 | disposition home or self-care (01) ==
LOC: VM.ED 12:51
DX: J44.1 Chronic obstructive pulmonary disease with (acute) exacerbation (principal); I10 Essential (primary) hypertension; E86.0 Dehydration; E03.9 Hypothyroidism, unspecified; E78.00 Pure hypercholesterolemia, unspecified; Z88.8 Allergy status to other drugs, medicaments and biological substances; Z79.890 Hormone replacement therapy; Z87.891 Personal history of nicotine dependence
CPT/HCPCS: 36415; 71045; 80053; 83605; 83735; 85025; 86140; 87040; 87428; 96361; 96374; 96375; 99285; J0696; J1642; J2919; J7120; 99284

== ENCOUNTER 2024-11-22 14:19 | Inpatient (IN) | payer BC ==
[2024-11-22] MEDS: Ondansetron 4 MG/2 ML SDV IVPUSH ONE (14:56)
[2024-11-22] MEDS: Lactated Ringers 1,000 ML IV ONE (14:56)
[2024-11-22 14:57] LABS: BASOPHILS ABSOLUTE AUTO 0.1 x10^3/uL (0.0-0.2); BASOPHILS PERCENT AUTO 0.4 % (0.2-1.2); EOSINOPHILS ABSOLUTE AUTO 0.1 x10^3/uL (0.0-0.5); EOSINOPHILS PERCENT AUTO 0.4 % (0.0-4.0); HEMATOCRIT 33.8 % (33.0-47.0); HEMOGLOBIN 11.6 g/dL (12.0-16.0); IMMATURE GRAN ABSOLUTE AUTO 0.09 x10^3/uL (0.00-0.07); LYMPHOCYTES ABSOLUTE AUTO 1.2 x10^3/uL (1.0-4.8); LYMPHOCYTES PERCENT AUTO 8.8 % (25.0-50.0); MEAN CORPUSCULAR HEMOGLOBIN 30.9 pg (26.0-32.0); MEAN CORPUSCULAR HGB CONC 34.3 g/dL (32.0-36.0); MEAN CORPUSCULAR VOLUME 90.1 fL (78.0-93.0); MONOCYTES ABSOLUTE AUTO 1.6 x10^3/uL (0.0-0.8); MONOCYTES PERCENT AUTO 11.7 % (2.0-11.0); NEUTROPHILS ABSOLUTE AUTO 10.5 x10^3/uL (1.8-7.7); PLATELET COUNT,PLT 283 x10^3/uL (130-400); RED BLOOD CELL COUNT 3.75 x10^6/uL (4.00-5.50)
[2024-11-22 15:12] LABS: WHITE BLOOD CELL COUNT,WBC 13.5 x10^3/uL (4.0-10.0)
[2024-11-22 15:21] LABS: A/G RATIO 0.57; ALBUMIN 2.4 g/dL (3.4-5.0); ANION GAP 12.9 mmol/L (5-15); C-REACTIVE PROTEIN 19.59 mg/dL (<=0.50); CALCIUM 9.1 mg/dL (8.5-10.1); CREATININE 0.7 mg/dL (0.55-1.02); EST CRCL DRUG DOSING (CG) 71.96 mL/min; INR 1.2 (0.9-1.1); MAGNESIUM 1.6 mg/dL (1.8-2.4); POTASSIUM,K 3.9 mmol/L (3.5-5.1); PROTEIN TOTAL,TP 6.6 g/dL (6.4-8.2); PROTHROMBIN TIME 12.7 SEC (9.6-12.0); PTT,PARTIAL THROMBOPLSTIN TIME 34.3 SEC (23.5-33.2)
[2024-11-22 15:24] LABS: LACTIC ACID 1.3 mmol/L (0.4-2.0)
[2024-11-22] MEDS: Doxycycline Monohydrate 100 MG Cap PO ONE (16:16)
[2024-11-22] MEDS: cefTRIAXone 1 GM Vial IVPUSH ONE (16:16)
[2024-11-22] MEDS: methylPREDNISolone Sodium Succinate 125 MG/2 ML SDV IV ONE (16:16)
[2024-11-22] MEDS: Iopamidol 755 Mg/ML 100 ML Bottle IVPUSH ONE (16:20)
[2024-11-22] MEDS ORDERED: oxyCODONE 5 MG Tab PO PRN (17:54)
[2024-11-22] MEDS ORDERED: Morphine 2 MG/ML SYRINGE IVPUSH PRN (17:54)
[2024-11-22] MEDS ORDERED: Ondansetron 4 MG Tab.DIS PO PRN (17:54)
[2024-11-22] MEDS: Magnesium Sulfate 2 GM/50 mL 2 GM in Premix Bag 1 BAG IV ONE (19:29)
[2024-11-22] MEDS: Sodium Chloride 0.9% 1,000 ML IV SCH (19:32)
[2024-11-22] MEDS: Polyethylene Glycol 3350 Powder 17 GM Packet PO PRN (20:53)
[2024-11-22] MEDS: levETIRAcetam 500 MG Tab PO SCH (20:54)
[2024-11-22] MEDS: Memantine 10 MG Tab PO SCH (20:54)
[2024-11-22] MEDS: Magnesium Oxide 400 MG Tab PO SCH (20:55)
[2024-11-22] MEDS: atorvaSTATin 10 MG Tab PO SCH (20:55)
[2024-11-22] MEDS: Ampicillin/Sulbactam Na 3 GM in Sodium Chloride 0.9% 100 ML IV SCH (22:13)
[2024-11-22] MEDS: SUMAtriptan 50 MG Tab PO PRN (22:20)
[2024-11-23] MEDS: Ampicillin/Sulbactam Na 3 GM in Sodium Chloride 0.9% 100 ML IV SCH (04:03)
[2024-11-23] MEDS: Levothyroxine 112 MCG Tab PO SCH (07:08)
[2024-11-23 07:23] LABS: APPEARANCE,URINE CLEAR (CLEAR); BILIRUBIN,URINE NEGATIVE (NEGATIVE); COLOR,URINE DARK YELLOW (YELLOW); GLUCOSE,URINE NEGATIVE (NEGATIVE); KETONES,URINE 15 mg/dL (NEGATIVE); LEUKOCYTE ESTERASE,URINE NEGATIVE (NEGATIVE); NITRITE,URINE NEGATIVE (NEGATIVE); OCCULT BLOOD,URINE NEGATIVE (NEGATIVE); PROTEIN,URINE NEGATIVE (NEGATIVE); UROBILINOGEN,URINE 0.2 EU/dL (0.2)
[2024-11-23] MEDS: Calcium Citrate/Vitamin D3 315 MG-250 Unit Tab PO SCH (07:26)
[2024-11-23 08:01] LABS: HEMATOCRIT 29.2 % (33.0-47.0); IMMATURE GRAN ABSOLUTE AUTO 0.04 x10^3/uL (0.00-0.07); LYMPHOCYTES ABSOLUTE AUTO 0.9 x10^3/uL (1.0-4.8); LYMPHOCYTES PERCENT AUTO 13.2 % (25.0-50.0); MEAN CORPUSCULAR HEMOGLOBIN 31.2 pg (26.0-32.0); MEAN CORPUSCULAR HGB CONC 34.2 g/dL (32.0-36.0); MONOCYTES ABSOLUTE AUTO 0.4 x10^3/uL (0.0-0.8); MONOCYTES PERCENT AUTO 5.5 % (2.0-11.0); NEUTROPHILS ABSOLUTE AUTO 5.7 x10^3/uL (1.8-7.7); NEUTROPHILS PERCENT AUTO 80.7 % (50.0-80.0); PLATELET COUNT,PLT 288 x10^3/uL (130-400); RED BLOOD CELL COUNT 3.21 x10^6/uL (4.00-5.50)
[2024-11-23 08:14] LABS: CALCIUM 8.8 mg/dL (8.5-10.1); CREATININE 0.6 mg/dL (0.55-1.02); EST CRCL DRUG DOSING (CG) 83.95 mL/min; MAGNESIUM 2.1 mg/dL (1.8-2.4); POTASSIUM,K 4.4 mmol/L (3.5-5.1)
[2024-11-23 08:18] LABS: ANION GAP 11.4 mmol/L (5-15)
[2024-11-23] MEDS: OLANZapine 2.5 MG Tab PO SCH (09:06)
[2024-11-23] MEDS: Clopidogrel 75 MG Tab PO SCH (09:06)
[2024-11-23] MEDS: Polyethylene Glycol 3350 Powder 17 GM Packet PO PRN (12:30)
[2024-11-23] MEDS: Acetaminophen 325 MG Tab PO PRN (12:35)
[2024-11-23] MEDS: Albuterol/Ipratropium 3.0-0.5 MG/3 ML Neb Soln NEB PRN (15:06)
[2024-11-23] MEDS ORDERED: Heparin Sodium 100 Units/ML 3 ML Syringe IVPUSH PRN (15:48)
[2024-11-23] MEDS: Sodium Chloride 0.9% 10 ML Syringe FLUSH PRN (22:00)
[2024-11-24] MEDS: Codeine/guaiFENesin 10-100 MG/5 ML Syrup 5 ML Cup PO PRN (01:01)
[2024-11-24] MEDS: Menthol Lozenge MUCMEM PRN (01:02)
[2024-11-24 06:53] LABS: BASOPHILS PERCENT AUTO 0.2 % (0.2-1.2); EOSINOPHILS ABSOLUTE AUTO 0.1 x10^3/uL (0.0-0.5); EOSINOPHILS PERCENT AUTO 0.6 % (0.0-4.0); HEMATOCRIT 26.3 % (33.0-47.0); HEMOGLOBIN 8.9 g/dL (12.0-16.0); IMMATURE GRAN ABSOLUTE AUTO 0.06 x10^3/uL (0.00-0.07); LYMPHOCYTES ABSOLUTE AUTO 1.6 x10^3/uL (1.0-4.8); LYMPHOCYTES PERCENT AUTO 13.3 % (25.0-50.0); MEAN CORPUSCULAR HEMOGLOBIN 31.9 pg (26.0-32.0); MEAN CORPUSCULAR HGB CONC 33.8 g/dL (32.0-36.0); MONOCYTES ABSOLUTE AUTO 1.1 x10^3/uL (0.0-0.8); MONOCYTES PERCENT AUTO 8.6 % (2.0-11.0); NEUTROPHILS ABSOLUTE AUTO 9.5 x10^3/uL (1.8-7.7); NEUTROPHILS PERCENT AUTO 76.8 % (50.0-80.0); PLATELET COUNT,PLT 302 x10^3/uL (130-400); RED BLOOD CELL COUNT 2.79 x10^6/uL (4.00-5.50); WHITE BLOOD CELL COUNT,WBC 12.3 x10^3/uL (4.0-10.0)
[2024-11-24 07:12] LABS: MEAN CORPUSCULAR VOLUME 94.3 fL (78.0-93.0)
[2024-11-24 07:14] LABS: A/G RATIO 0.56; ANION GAP 10.3 mmol/L (5-15); BILIRUBIN TOTAL 0.2 mg/dL (0.2-1.0); C-REACTIVE PROTEIN 8.69 mg/dL (<=0.50); CALCIUM 8.6 mg/dL (8.5-10.1); CREATININE 0.6 mg/dL (0.55-1.02); EST CRCL DRUG DOSING (CG) 83.95 mL/min; MAGNESIUM 1.9 mg/dL (1.8-2.4); POTASSIUM,K 3.3 mmol/L (3.5-5.1); PROTEIN TOTAL,TP 5.6 g/dL (6.4-8.2)
[2024-11-24] MEDS ORDERED: predniSONE 10 MG Tab PO SCH (09:00)
[2024-11-24] MEDS: Potassium Chloride 10 MEQ Tab.ER PO ONE (09:03)
[2024-11-24] MEDS: Benzonatate 100 MG Cap PO PRN (11:20)
[2024-11-24] MEDS: Magnesium Hydroxide 400 MG/5 ML Susp 30 ML Cup PO PRN (18:29)
[2024-11-24] MEDS: Zolpidem 5 MG Tab PO PRN (23:20)
[2024-11-25 06:54] LABS: BASOPHILS PERCENT AUTO 0.3 % (0.2-1.2); EOSINOPHILS ABSOLUTE AUTO 0.2 x10^3/uL (0.0-0.5); EOSINOPHILS PERCENT AUTO 1.5 % (0.0-4.0); HEMATOCRIT 29.6 % (33.0-47.0); HEMOGLOBIN 9.7 g/dL (12.0-16.0); IMMATURE GRAN ABSOLUTE AUTO 0.03 x10^3/uL (0.00-0.07); LYMPHOCYTES ABSOLUTE AUTO 1.9 x10^3/uL (1.0-4.8); LYMPHOCYTES PERCENT AUTO 18.3 % (25.0-50.0); MEAN CORPUSCULAR HGB CONC 32.8 g/dL (32.0-36.0); MEAN CORPUSCULAR VOLUME 94.6 fL (78.0-93.0); MONOCYTES ABSOLUTE AUTO 1.2 x10^3/uL (0.0-0.8); MONOCYTES PERCENT AUTO 11.3 % (2.0-11.0); NEUTROPHILS ABSOLUTE AUTO 7.1 x10^3/uL (1.8-7.7); NEUTROPHILS PERCENT AUTO 68.3 % (50.0-80.0); PLATELET COUNT,PLT 309 x10^3/uL (130-400); RED BLOOD CELL COUNT 3.13 x10^6/uL (4.00-5.50)
[2024-11-25 07:09] LABS: CALCIUM 8.7 mg/dL (8.5-10.1); CREATININE 0.6 mg/dL (0.55-1.02); EST CRCL DRUG DOSING (CG) 83.95 mL/min; POTASSIUM,K 3.4 mmol/L (3.5-5.1)
[2024-11-25 07:10] LABS: ANION GAP 12.4 mmol/L (5-15); WHITE BLOOD CELL COUNT,WBC 10.3 x10^3/uL (4.0-10.0)
== END 2024-11-25 14:20 | disposition home or self-care (01) | DRG 139 ==
LOC: VM.ED 14:19 → VM.MS 17:21
PROVIDERS: ADMIT Family Medicine; ATTEND Family Medicine
DX: J18.9 Pneumonia, unspecified organism (principal); G93.6 Cerebral edema; J44.0 Chronic obstructive pulmonary disease with (acute) lower respiratory infection; J44.1 Chronic obstructive pulmonary disease with (acute) exacerbation; E87.1 Hypo-osmolality and hyponatremia; C79.51 Secondary malignant neoplasm of bone; C77.1 Secondary and unspecified malignant neoplasm of intrathoracic lymph nodes; G43.909 Migraine, unspecified, not intractable, without status migrainosus; C34.91 Malignant neoplasm of unspecified part of right bronchus or lung; C34.92 Malignant neoplasm of unspecified part of left bronchus or lung; E78.00 Pure hypercholesterolemia, unspecified; E83.42 Hypomagnesemia; I10 Essential (primary) hypertension; K58.9 Irritable bowel syndrome, unspecified; H54.7 Unspecified visual loss; M19.90 Unspecified osteoarthritis, unspecified site; E86.0 Dehydration; E03.9 Hypothyroidism, unspecified; E87.6 Hypokalemia; K59.00 Constipation, unspecified; C79.31 Secondary malignant neoplasm of brain; G89.3 Neoplasm related pain (acute) (chronic); K44.9 Diaphragmatic hernia without obstruction or gangrene; Z87.11 Personal history of peptic ulcer disease; Z86.73 Personal history of transient ischemic attack (TIA), and cerebral infarction without residual deficits; Z98.49 Cataract extraction status, unspecified eye; Z98.890 Other specified postprocedural states; Z87.891 Personal history of nicotine dependence; Z88.8 Allergy status to other drugs, medicaments and biological substances; Z91.048 Other nonmedicinal substance allergy status; Z91.038 Other insect allergy status; Z79.02 Long term (current) use of antithrombotics/antiplatelets; Z79.899 Other long term (current) drug therapy; Z79.52 Long term (current) use of systemic steroids; Z79.890 Hormone replacement therapy; Z86.0100 Personal history of colon polyps, unspecified
CPT/HCPCS: 36415; 71045; 71046; 71275; 74018; 80048; 80053; 81003; 83605; 83735; 85025; 85379; 85610; 85730; 86140; 87040; 94640; 96361; 96374; 96375; 97161-GP; 97165-GO; 97535-GO; 99223; 99223-GT; 99233; 99233-GT; 99284; 99285-25; A9270-GY; J0295; J0696; J1642; J2405; J2919; J3475; J7030; J7120; Q3014; Q9967